=== PATIENT | female | born 1960 | race Caucasian/White ===

== ENCOUNTER 2024-03-07 05:30 | Inpatient (IN) | payer OTHER ==
[~2024-03-07] VITALS: Ht 170.2 cm; Wt 84.4 kg
[2024-03-07] MEDS ORDERED: ACETAMINOPHEN 325 MG TABLET ONE (05:48)
[2024-03-07] MEDS: CELECOXIB 100 MG CAPSULE ONE (06:05)
[2024-03-07] MEDS: SCOPOLAMINE HYDROBROMIDE 1 MG PATCH .72 H (TRANSDERM-SCOP) TD ONE (06:05)
[2024-03-07] MEDS: ACETAMINOPHEN 500 MG TABLET PO ONE (06:05)
[2024-03-07] MEDS ORDERED: ACETAMINOPHEN 500 MG TABLET ONE (06:42)
[2024-03-07 06:44] VITALS: O2SAT 0
[2024-03-07] MEDS ORDERED: CELECOXIB 100 MG CAPSULE PO ONE (06:45)
[2024-03-07] MEDS ORDERED: SCOPOLAMINE HYDROBROMIDE 1 MG PATCH .72 H (TRANSDERM-SCOP) TD ONE (06:45)
[2024-03-07] MEDS ORDERED: oxyCODONE HCL 10 MG TAB.ER.12H PO ONE (06:45)
[2024-03-07] MEDS ORDERED: CEFAZOLIN SOD 2 GM in D5W 50 ML IV ONE (06:45)
[2024-03-07] MEDS: oxyCODONE HCL 10 MG TAB.ER.12H PO ONE (07:07)
[2024-03-07] MEDS ORDERED: PROPOFOL DRIP 100 ML IV ONE (07:08)
[2024-03-07] MEDS ORDERED: MIDAZOLAM HCL 2 MG/2 ML VIAL (VERSED) ONE (07:08)
[2024-03-07] MEDS ORDERED: DEXAMETHASONE SOD PHOSPHATE 4 MG/ML VIAL ONE (07:10)
[2024-03-07] MEDS ORDERED: LR 1,000 ML IV ONE (08:00)
[2024-03-07] MEDS ORDERED: NALOXONE HCL 0.4 MG/ML AMP (NARCAN) IVP PRN ×3 (08:00→09:15)
[2024-03-07] MEDS ORDERED: HYDROmorphone 1 MG/ML INJ. CARTRIDGE IVP PRN ×4 (08:00→11:00)
[2024-03-07] MEDS ORDERED: ONDANSETRON HCL 4 MG/2 ML VIAL IVP PRN ×2 (08:00→11:45)
[2024-03-07] MEDS ORDERED: BISACODYL 10 MG/SUPPOSITORY RC PRN (09:15)
[2024-03-07] MEDS ORDERED: LACTULOSE 20 GM/30 ML UDC PO PRN (09:15)
[2024-03-07] MEDS ORDERED: METOCLOPRAMIDE HCL 10 MG/2 ML VIAL IVP PRN (09:15)
[2024-03-07] MEDS ORDERED: DIPHENHYDRAMINE HCL 25 MG CAPSULE PO PRN (09:15)
[2024-03-07] MEDS ORDERED: NALOXONE HCL 2 MG/2 ML SYR IVP PRN (09:15)
[2024-03-07] MEDS ORDERED: HYDROmorphone 1 MG/ML INJ. CARTRIDGE ONE (09:24)
[2024-03-07] MEDS: fentaNYL CITRATE/PF 100 MCG/2 ML AMP IVP PRN ×2 (09:25→09:50)
[2024-03-07] MEDS ORDERED: fentaNYL CITRATE/PF 100 MCG/2 ML AMP ONE (09:28)
[2024-03-07 10:42] VITALS: BP_SYST 138; PULSE 56; RESP 16; TEMP 98.8
[2024-03-07] MEDS ORDERED: LORATADINE 10 MG TABLET PO PRN (11:00)
[2024-03-07] MEDS ORDERED: traMADol HCL HCL 50 MG TABLET (ULTRAM) PO PRN (11:00)
[2024-03-07] MEDS ORDERED: oxyCODONE HCL 5 MG TABLET PO PRN ×2 (11:00)
[2024-03-07] MEDS ORDERED: ceFAZolin SODIUM 2 GM in D5W 50 ML IV SCH (11:15)
[2024-03-07] MEDS: TAMSULOSIN HCL 0.4 MG CAP PO ONE (12:40)
[2024-03-07] MEDS ORDERED: ACETAMINOPHEN 500 MG TABLET PO SCH (14:00)
[2024-03-07] MEDS ORDERED: KETOROLAC TROMETHAMINE 10 MG TABLET (TORADOL) PO SCH (14:00)
[2024-03-07] MEDS ORDERED: SENNOSIDES/DOCUSATE SODIUM 1 TAB TABLET(SENOKOT-S) PO SCH (21:00)
[2024-03-08] MEDS ORDERED: ASPIRIN 81 MG TAB.CHEW PO SCH (09:00)
[2024-03-08] MEDS ORDERED: CELECOXIB 200 MG CAPSULE PO SCH (11:00)
== END 2024-03-07 14:52 | disposition home health service (06) | DRG 470 ==
LOC: SMU 05:30
PROVIDERS: ADMIT Student in an Organized Health Care Education/Training Program; ATTEND Student in an Organized Health Care Education/Training Program
PROC: 0SRC0JA Replacement of Right Knee Joint with Synthetic Substitute, Uncemented, Open Approach (ICD-10-PCS; principal; 2024-03-07 07:10)
DX: M17.11 Unilateral primary osteoarthritis, right knee (principal); Z79.899 Other long term (current) drug therapy
CPT/HCPCS: 73560; 87081; 88305; 88311; 97110-GP; 97116-GP; 97530-GP; C1776; J0171; J0690; J0696; J1100; J1170; J2405; J2704; J3010; J3370; J3465; J3490; J7060; J7120